=== PATIENT | male | born 1965 | race Two or more races ===

== ENCOUNTER 2020-07-08 16:04 | Outpatient (CLI) | payer OTHER | END 2020-07-08 16:38 | disposition home or self-care (01) | LOC: RAD 16:04 | PROVIDERS: ATTEND Internal Medicine Cardiovascular Disease | DX: M25.521 Pain in right elbow (principal); S59.902A Unspecified injury of left elbow, initial encounter ==

== ENCOUNTER 2021-04-20 08:59 | Outpatient (CLI) | payer OTHER | END 2021-04-20 09:21 | disposition home or self-care (01) | LOC: SONOGRAMA 08:59 | PROVIDERS: ATTEND Internal Medicine | DX: M77.11 Lateral epicondylitis, right elbow (principal); M77.12 Lateral epicondylitis, left elbow ==